=== PATIENT | female | born 1990 | race Caucasian/White ===

== ENCOUNTER 2017-11-20 20:47 | Emergency (ER) | payer OTHER ==
[~2017-11-20] VITALS: Ht 157.5 cm; Wt 70.3 kg
[2017-11-20] MEDS ORDERED: PRENATAL TABLE1 EACH (20:52)
[2017-11-21] MEDS ORDERED: ZYRTEC10 MG PO (04:57)
[2017-11-21] MEDS ORDERED: ZYNCOF 20-400120 ML PO (04:57)
== END 2017-11-21 04:49 | disposition home or self-care (01) ==
LOC: ER 20:47
DX: O98.511 Other viral diseases complicating pregnancy, first trimester (principal); B34.9 Viral infection, unspecified; Z34.81 Encounter for supervision of other normal pregnancy, first trimester

== ENCOUNTER 2018-01-12 21:17 | Outpatient (CLI) | payer OTHER ==
[~2018-01-12 21:17] MED LIST: PRENATAL TABLE1 EACH; ZYNCOF 20-400120 ML PO; ZYRTEC10 MG PO
== END 2018-01-13 19:57 | disposition home or self-care (01) ==
LOC: OBS/DEL 21:17
DX: O47.02 False labor before 37 completed weeks of gestation, second trimester (principal); R10.2 Pelvic and perineal pain; R53.81 Other malaise

== ENCOUNTER 2018-01-30 22:32 | Outpatient (CLI) | payer OTHER ==
[2018-01-30] MEDS ORDERED: SYNTHROID50 MCG PO (23:26)
== END 2018-01-31 14:05 | disposition home or self-care (01) ==
LOC: OBS/DEL 22:32
DX: O26.892 Other specified pregnancy related conditions, second trimester (principal); H83.09 Labyrinthitis, unspecified ear; A08.39 Other viral enteritis; O60.02 Preterm labor without delivery, second trimester; Z34.82 Encounter for supervision of other normal pregnancy, second trimester

== ENCOUNTER 2018-03-18 17:39 | Outpatient (CLI) | payer OTHER ==
[~2018-03-18 17:39] MED LIST changes: +SYNTHROID50 MCG PO
[2018-03-19] MEDS ORDERED: ZITHROMAX200 MG PO (13:26)
[2018-03-19] MEDS ORDERED: CEFADROXIL500 MG PO (13:27)
== END 2018-03-19 14:10 | disposition home or self-care (01) ==
LOC: OBS/DEL 17:39
DX: O23.43 Unspecified infection of urinary tract in pregnancy, third trimester (principal); O26.893 Other specified pregnancy related conditions, third trimester; J06.9 Acute upper respiratory infection, unspecified; Z34.03 Encounter for supervision of normal first pregnancy, third trimester

== ENCOUNTER 2018-03-31 18:47 | Outpatient (CLI) | payer OTHER ==
[~2018-03-31 18:47] MED LIST changes: +CEFADROXIL500 MG PO; +ZITHROMAX200 MG PO
== END 2018-04-01 13:30 | disposition home or self-care (01) ==
LOC: OBS/DEL 18:47
DX: O26.893 Other specified pregnancy related conditions, third trimester (principal); M79.1 Myalgia; O60.03 Preterm labor without delivery, third trimester; Z34.03 Encounter for supervision of normal first pregnancy, third trimester

== ENCOUNTER 2018-04-26 16:54 | Outpatient (CLI) | payer OTHER | END 2018-04-27 20:25 | disposition home or self-care (01) | LOC: OBS/DEL 16:54 | DX: O23.43 Unspecified infection of urinary tract in pregnancy, third trimester (principal); O60.03 Preterm labor without delivery, third trimester; O26.893 Other specified pregnancy related conditions, third trimester; M79.1 Myalgia; Z34.83 Encounter for supervision of other normal pregnancy, third trimester ==

== ENCOUNTER 2018-04-29 14:17 | Inpatient (IN) | payer OTHER ==
[~2018-04-29] VITALS: Ht 157.5 cm; Wt 2.7 kg
[2018-04-29] MEDS ORDERED: ACYCLOVIR400 MG PO (14:55)
[2018-05-04] MEDS ORDERED: PERCOCET 5-3251 EACH PO (12:52)
[2018-05-04] MEDS ORDERED: SURFAK240 M1 PO (12:52)
== END 2018-05-04 14:37 | DRG 766 ==
LOC: LDR 14:17 → OB/GYN 05-01 10:44
PROVIDERS: Specialist
PROC: 0UL70ZZ Occlusion of Bilateral Fallopian Tubes, Open Approach (ICD-10-PCS; 2018-05-01)
PROC: 4A033R1 Measurement of Arterial Saturation, Peripheral, Percutaneous Approach (ICD-10-PCS; 2018-05-01)
PROC: 4A1HXCZ Monitoring of Products of Conception, Cardiac Rate, External Approach (ICD-10-PCS; 2018-05-01)
PROC: 10D00Z1 Extraction of Products of Conception, Low, Open Approach (ICD-10-PCS; principal; 2018-05-01 04:45)
DX: O14.14 Severe pre-eclampsia complicating childbirth (principal); Z3A.37 37 weeks gestation of pregnancy; Z37.0 Single live birth; Z30.2 Encounter for sterilization; Z22.330 Carrier of Group B streptococcus